=== PATIENT | female | born 1990 ===

== ENCOUNTER 2021-03-22 00:03 | Emergency (ER) | payer OTHER ==
[~2021-03-22] VITALS: Ht 165.1 cm; Wt 77.0 kg
[2021-03-22 01:58] LABS: BASOPHILS % (AUTO) 0 % (0-1); EOSINOPHILS % (AUTO) 0 % (1-7); LYMPHOCYTES % (AUTO) 5 % (22-44); MEAN CORPUSCULAR HEMOGLOBIN 30.8 pg (27.0-34.8); MEAN CORPUSCULAR HGB CONC 34.9 g/dL (32.4-35.8); MEAN PLATELET VOLUME 7.5 fL (7.4-10.4); MONOCYTES % (AUTO) 7 % (2-9); NEUTROPHILS % (AUTO) 88 % (42-75); PLATELET COUNT 234 x10^3/uL (130-400); RED BLOOD COUNT 5.05 x10^6/uL (3.82-5.3); RED CELL DISTRIBUTION WIDTH 12.4 % (9.6-15.2)
[2021-03-22] MEDS ORDERED: KETOROLAC 15 MG/1ML IVPush ONE (02:00)
[2021-03-22] MEDS ORDERED: SODIUM CHLORIDE 0.9% 1,000ML IVBOLUS ONE (02:00)
[2021-03-22] MEDS ORDERED: KETOROLAC 30 MG/1 ML ONE (02:05)
[2021-03-22 02:11] LABS: ALANINE AMINOTRANSFERASE 24 U/L (12-78); ALBUMIN 4.1 g/dL (3.4-5.0); ANION GAP 5 mmol/L (5-15); CALCIUM 8.9 mg/dL (8.5-10.1); CHLORIDE 103 mmol/L (98-107)
[2021-03-22 02:13] LABS: ALKALINE PHOSPHATASE 74 U/L (45-117); BILIRUBIN,TOTAL 0.7 mg/dL (0.2-1.0); TOTAL PROTEIN 7.6 g/dL (6.4-8.2)
[2021-03-22 02:21] LABS: HCG UR SG 1.008 (1.003-1.030); MICROSCOPIC AUTO
[2021-03-22] MEDS ORDERED: CEFTRIAXONE 1,000 MG in DEXTROSE 5% 50 ML IVPB ONE (03:00)
[2021-03-22 03:05] VITALS: BP 101/58
== END 2021-03-22 03:41 | disposition home or self-care (01) ==
LOC: ED 01:00
DX: N30.00 Acute cystitis without hematuria (principal); R30.0 Dysuria
CPT/HCPCS: 36415; 80053; 81001; 81025; 83605; 83690; 84145; 85025; 87040; 87086; 96365; 96372; 96375; 99284; J0696; J1885; J7030